=== PATIENT | female | born 1965 ===

== ENCOUNTER 2024-09-20 11:41 | Emergency (ER) | payer OTHER, SELFPAY ==
--- NOTE | ~2024-09-20 | CT_ITS ---
EXAMINATION: CT ABDOMEN PELVIS WITHOUT IV CONTRAST HISTORY: right flank pain COMPARISON: There are no prior studies available for comparison. TECHNIQUE: CT scan of the abdomen and pelvis was performed without contrast using standard departmental protocol. Coronal and sagittal reformatted images were generated and reviewed. Oral contrast material was not administered per department protocol. This CT exam was performed with one or more of the following dose reduction techniques: automated exposure control, adjustment of the mA and/or kV according to patient size, use of iterative reconstruction technique. DLP: 969 mGy-cm FINDINGS: LOWER CHEST: There is minimal patchy airspace opacity at the right lung base, which could represent early pneumonia. The visualized left lung base is clear. There is a trace right pleural effusion. CARDIOVASCULATURE: The heart is normal in size. There is no pericardial effusion. LIVER: The liver is normal in size and contour. The liver has an unremarkable unenhanced appearance. GALLBLADDER / BILE DUCTS: The gallbladder is unremarkable. There is no intra or extrahepatic biliary ductal dilatation. SPLEEN: The spleen is normal in size and has an unremarkable unenhanced appearance. PANCREAS: The pancreas has an unremarkable unenhanced appearance. ADRENAL GLANDS: Unremarkable. KIDNEYS/RETROPERITONEUM: There is a hypertrophied column of Arun on the right. No renal or ureteral calculi are identified. There is no hydronephrosis or hydroureter. LYMPH NODES: No retroperitoneal lymphadenopathy is identified in the abdomen or pelvis. VASCULATURE: The abdominal aorta is normal in caliber. MESENTERY/PERITONEUM: No free fluid. No masses. There is no free intraperitoneal gas. STOMACH: The patient is status post post laparoscopic gastric band procedure. SMALL BOWEL: The small bowel is normal in caliber. COLON: The colon is unremarkable. APPENDIX: Normal. URINARY BLADDER/PELVIC ORGANS: The urinary bladder is unremarkable. The uterus and ovaries have an unremarkable unenhanced appearance. There is a curvilinear metallic density adjacent to the uterine fundus. BONES / SOFT TISSUES: There is grade I spondylolisthesis of L4 on L5. A small sclerotic focus in the left ilium likely represents a bone island. CT/CT abdomen pelvis wo IV con IMPRESSION: 1. No evidence of nephrolithiasis or ureteral obstruction. 2. Possible early right lower lobe pneumonia with an associated trace pleural effusion. 3. Curvilinear metallic foreign body in the pelvis adjacent to the uterine fundus. Clinical correlation is recommended. Electronically signed by: Jose Soria MD 09/20/2024 02:05 PM EDT RP
--- NOTE | ~2024-09-20 | CT_ITS ---
CLINICAL HISTORY: Shortness of breath right-sided pain CT angiography chest with contrast. MIP postprocessing. Comparison: CT/SR - CT ABDOMEN PELVIS WO IV CON - 09/20/24 13:38 EDT Findings: There is appropriate contrast opacification of the main, lobar, and segmental pulmonary arteries. No filling defects identified to suggest pulmonary embolism. Thoracic aorta is nonaneurysmal. Overall heart size within normal limits. Multifocal areas of ground-glass density are seen within the upper lobes. More focal consolidation seen within the dependent portion of the right lower lobe with small right pleural effusion seen on the patient's earlier CT of the abdomen. No discrete pulmonary mass lesion identified. No pneumothorax. Small hiatal hernia. Lap band device is in place along the gastric fundus. No free fluid or free air within the upper abdomen. Low-attenuation throughout the liver is indicative of fatty infiltration. No acute bony lesions. IMPRESSION: 1. No pulmonary emboli. 2. Hazy ground-glass densities may be seen with edema or pneumonitis. 3. Unchanged consolidation within the dependent portion of the right lower lobe with small right pleural effusion. This document has been electronically signed by: Jackson Boggs MD on 09/20/2024 20:57:16
[2024-09-20 11:58] VITALS: BP 132/81; PULSE 87; RESP 18; TEMP 36.6; O2SAT 98; BMI 43.2
[2024-09-20 12:26] LABS: MANUAL DIFF FLAG NO
[2024-09-20 12:28] LABS: Appearance Urine Clear; Basophils Absolute Auto 0.1 X10*3/uL (0.0-0.2); Basophils Percent Auto 0.8 % (0-2); Color Urine Yellow; Eosinophils Absolute Auto 0.1 X10*3/uL (0.0-0.4); Eosinophils Percent Auto 1.5 % (0-4); Glucose Urine UA Negative (Negative); Hematocrit 45.4 % (37.0-47.0); Imm Gran Abs Auto 0.03 X10*3/uL (0.00-0.03); Imm Gran Pct Auto 0.4 % (0.0-0.4); Leukocyte Esterase Urine Negative (Negative); Lymphocytes Absolute Auto 1.7 X10*3/uL (1.2-4.9); Lymphocytes Percent Auto 21.9 % (20-40); Mean Corpuscular Hemoglobin 28.4 pg (27.0-33.0); Mean Corpuscular Volume 85.8 fL (80.0-98.0); Mean Platelet Volume 8.6 fL (9.4-12.3); Monocytes Absolute Auto 0.6 X10*3/uL (0.1-1.2); Monocytes Percent Auto 7.9 % (2-11); Neutrophils Absolute Auto 5.4 x10*3/uL (2.0-8.3); Neutrophils Percent Auto 67.5 % (45-73); Nitrite Urine Negative (Negative); Platelet Count 306 X10*3/uL (160-400); Red Blood Count 5.29 X10*6/uL (4.20-5.50); Red Cell Distribution Width 12.9 % (11.0-16.0); Specific Gravity - Urine 1.015 (1.005-1.025); UMIC TRIGGER UACC YES; Urine Blood Trace (Negative); Urine Ketones Negative (Negative); Urine Protein Negative (Neg-Trace)
[2024-09-20 12:31] LABS: Bacteria Urine None Seen (None Seen); Hyaline Casts Urine 0-2 /LPF (0-2); RBC Urine 0-2 /HPF (0-2); Squamous Epithelial Cell Urine 0-2 /HPF (0-2); WBC Urine 0-5 /HPF (0-5)
[2024-09-20 12:41] LABS: Alanine Aminotransferase 12 U/L (0-31); Albumin Level 4.4 g/dL (3.5-5.0); Alkaline Phosphatase 97 U/L (39-117); Anion Gap 16 (12-20); Aspartate Amino Transferase 17 U/L (5-31); Bilirubin Direct 0.2 mg/dL (0.0-0.5); Bilirubin Total 0.6 mg/dL (0.0-1.0); Blood Urea Nitrogen 16 mg/dL (9-16); Calcium 9.4 mg/dL (8.4-10.2); Carbon Dioxide 28 mmol/L (22-29); Chloride 102 mmol/L (96-108); Creatinine Clr Calc Pharmacy 89.3; Estimated Glomerular Filt Rate > 60; Glucose Random 117 mg/dL (60-115); Lipase 39 U/L (8-78); Potassium 3.4 mmol/L (3.3-5.1); Sodium 143 mmol/L (135-145); Total Protein 7.4 g/dL (6.5-8.0)
[2024-09-20 16:47] VITALS: BP 142/88; PULSE 83; RESP 18; TEMP 36.6; O2SAT 97
[2024-09-20 17:24] VITALS: BP 152/83; PULSE 87; RESP 18; TEMP 36.4; O2SAT 97
--- NOTE | 2024-09-20 17:52 | ED.FEMALEGU ---
HPI - Female Genitourinary General Chief complaint: Urogenital-Female Stated complaint: Kidney stone? Back Pain Time Seen by Provider: 09/20/24 17:47 Source: patient Mode of arrival: ambulatory Limitations: no limitations History of Present Illness ED Provider: HPI Narrative: Patient no significant past medical history noticed pain in the right lower lung and upper abdominal for last 4 days denies any cough started having increased shortness of breath since yesterday no fever no chills patient does have strong family history of lymphoma in brother and sister patient has never diagnose with early lung condition no history of kidney stone or gallstones no nausea no vomiting pain increases on taking a deep breaths Related Data Previous Rx's ?Medication ?Instructions ?Recorded amoxicillin 875 mg-potassium 1 tab PO BID #20 tabs 09/20/24 clavulanate 125 mg tablet doxycycline hyclate 100 mg tablet 100 mg PO BID #20 tabs 09/20/24 ibuprofen 600 mg tablet 600 mg PO Q6H PRN fever or pain 09/20/24 #30 tabs Allergies Allergy/AdvReac Type Severity Reaction Status Date / Time No Known Allergies Allergy Verified 09/20/24 12:00 Review of Systems Review of Systems: Yes all other systems are reviewed and are negative [facility] Social History Social History Advance Directives: No Advance Directives Information Provided: No Do you have a plan to hurt others: No Plan Physical Exam Vital Signs: Vital Signs: Last Vital Signs Temp 98.6 F 09/20/24 23:10 Pulse 88 09/20/24 23:10 Resp 16 09/20/24 23:10 BP 138/68 09/20/24 23:10 Pulse Ox 95 09/20/24 23:10 O2 Del Method Room Air 09/20/24 23:10 BMI result Body Mass Index 43.2 Appearance: Alert. Oriented X3. mod+ discomfort Eyes: PERRLA, No Nystagmus ENT: Pharynx normal. Oral Mucosa moist Neck: Normal inspection. Neck supple. CVS: Normal heart rate and rhythm. Pulses normal. Respiratory: No respiratory distress. Equal air entry bilateral, no wheezing/rales/rhonchi Abdomen: Soft and nontender. Bowel sounds are present, no mass palpable, no CVA tenderness Skin: Skin warm and dry. Normal skin color. Normal skin turgor. Extremities: No lower extremity edema. No calf tenderness Neuro: Oriented X 3. No motor deficit. No sensory deficit.No cerebellar signs , cranial nerves II-XII intact Medications Administered Discontinued Medications Generic Name Dose Route Start Last Admin Trade Name Jovanniq PRN Reason Stop Dose Admin Amoxicillin/Clavulanate Potassium 875 mg 09/20/24 21:32 09/20/24 21:43 Amoxicillin/Potassium Clav 875 Mg Tablet PO 09/20/24 21:33 875 mg ONCE ONE Administration Doxycycline Monohydrate 100 mg 09/20/24 21:32 09/20/24 21:43 Doxycycline Monohydrate 100 Mg Capsule PO 09/20/24 21:33 100 mg ONCE ONE Administration Iohexol 85 ml 09/20/24 20:08 09/20/24 20:09 Iohexol 350 Mg/Ml 100 Ml Infus..Btl IV 09/20/24 20:09 85 ml ONCE ONE Administration Morphine Sulfate 4 mg 09/20/24 18:31 09/20/24 18:40 Morphine Sulfate 4 Mg/Ml Cartridge IVPUSH 09/20/24 18:32 4 mg ONCE ONE Administration Protocol Ondansetron HCl 4 mg 09/20/24 18:31 09/20/24 18:40 Ondansetron Hcl 4 Mg/2 Ml Vial IVPUSH 09/20/24 18:32 4 mg ONCE ONE Administration Medical Decision Making Medical Decision Making [facility] Narrative: Patient with right lower lung pain CT scan of the abdomen showed pleural effusion will do CTA chest to rule out mass in the lung/pulmonary infarction patient has a strong family history of lymphoma Patient's CT scan showed right lower lobe infiltration patient does not have any cough etiology not clear likely patient has aspiration pneumonia with pleurisy as the cause of the pain will prescribe her Augmentin and check for the COVID flu Lab Data [facility] Lab Attestation statement: I reviewed the patient's lab results. 09/20/24 12:14 09/20/24 12:14 Labs: Lab Results 09/20/24 09/20/24 Range/Units 12:14 21:47 WBC 8.0 (4.8-10.8) X10*3/uL RBC 5.29 (4.20-5.50) X10*6/uL Hgb 15.0 (12.0-16.0) g/dl Hct 45.4 (37.0-47.0) % MCV 85.8 (80.0-98.0) fL MCH 28.4 (27.0-33.0) pg MCHC 33.0 (31.0-35.0) g/dl RDW 12.9 (11.0-16.0) % Plt Count 306 (160-400) X10*3/uL MPV 8.6 L (9.4-12.3) fL Immature Gran % (Auto) 0.4 (0.0-0.4) % Neut % (Auto) 67.5 (45-73) % Lymph % (Auto) 21.9 (20-40) % [place] % (Auto) 7.9 (2-11) % Eos % (Auto) 1.5 (0-4) % Baso % (Auto) 0.8 (0-2) % Lymph # (Auto) 1.7 (1.2-4.9) X10*3/uL [place] # (Auto) 0.6 (0.1-1.2) X10*3/uL Eos # (Auto) 0.1 (0.0-0.4) X10*3/uL Baso # (Auto) 0.1 (0.0-0.2) X10*3/uL Abs Immat Gran (auto) 0.03 (0.00-0.03) X10*3/uL Absolute Neuts (auto) 5.4 (2.0-8.3) x10*3/uL Absolute Nucleated RBC 0.000 (0.0-0.012) X10*3/uL Nucleated RBC % (auto) 0.0 (0.0-0.2) /100WBC Sodium 143 (135-145) mmol/L Potassium 3.4 (3.3-5.1) mmol/L Chloride 102 (96-108) mmol/L Carbon Dioxide 28 (22-29) mmol/L Anion Gap 16 (12-20) BUN 16 (9-16) mg/dL Creatinine 0.79 (0.5-1.4) mg/dL Estim Creat Clear Calc 89.3 Estimated GFR > 60 Random Glucose 117 H (60-115) mg/dL Calcium 9.4 (8.4-10.2) mg/dL Total Bilirubin 0.6 (0.0-1.0) mg/dL Direct Bilirubin 0.2 (0.0-0.5) mg/dL AST 17 (5-31) U/L ALT 12 (0-31) U/L Alkaline Phosphatase 97 (39-117) U/L Total Protein 7.4 (6.5-8.0) g/dL Albumin 4.4 (3.5-5.0) g/dL Lipase 39 (8-78) U/L Urine Color Yellow Urine Appearance Clear Urine pH 5.0 (5.0-9.0) Ur Specific [place] 1.015 (1.005-1.025) Urine Protein Negative (Neg-Trace) mg/dL Urine Glucose (UA) Negative (Negative) mg/dL Urine Ketones Negative (Negative) mg/dL Urine Blood Trace H (Negative) Urine Nitrite Negative (Negative) Ur Leukocyte Esterase Negative (Negative) Urine RBC 0-2 (0-2) /HPF Urine WBC 0-5 (0-5) /HPF Ur Squamous Epith Cells 0-2 (0-2) /HPF Urine Bacteria None Seen (None Seen) Hyaline Casts 0-2 (0-2) /LPF Influenza Type A (PCR) NEGATIVE (Negative) Influenza Type B (PCR) NEGATIVE (Negative) RSV RNA Qual (PCR) NEGATIVE (Negative) SARS-CoV-2 RNA (RT-PCR) NEGATIVE (Negative) Independent Interpretation I performed an independent interpretation of an: CT Scan Radiology Impression Discussion of test interpretation with radiology: I have reviewed the radiologist's reading. Discharge Plan Discharge Clinical Impression: Pneumonia, Pleurisy Patient Disposition: Home, Self-Care Instructions: Pleurisy (DC), Community Acquired Pneumonia (ED) Additional Instructions: Your small pneumonia with likely pleural inflammation as the cause of pain Take antibiotic as prescribed Ibuprofen for pain Follow up with your PCP Prescriptions: New ibuprofen 600 mg tablet 600 mg PO Q6H PRN (Reason: fever or pain) Qty: 30 0RF doxycycline hyclate 100 mg tablet 100 mg PO BID Qty: 20 0RF amoxicillin-pot clavulanate 875-125 mg tablet 1 tab PO BID Qty: 20 0RF Interventions: ED Discharge Assessment Last Done: 09/20/24 23:10 Discharge Date/Time: 09/20/24 23:11 Print Language: Unable To Collect
--- OUTSIDE RECORDS SUMMARY | 2024-09-20 17:57 | XMS_ITS ---
Author Name [facility] Organization Unknown History of Medication Use Medication Directions Dispensed Refills Start Date End Date Status gabapentin 600 mg tablet TAKE 1 TABLET BY MOUTH DAILY 04/28/19 25 active lidocaine-prilocaine 2.5 %-2.5 % topical kit APPLY TO THE RIGHT FOOT EXTERNALLY THREE TIMES A DAY NEEDED 30 DAYS 05/29/19 24 025 completed famotidine 20 mg tablet TAKE 1 TABLET BY MOUTH TWICE A DAY 04/27/19 24 active predniSONE (DELTASONE) 10 MG tablet 40 MG PO every day X 3 DAYS, 30 MG PO every day X 3 DAYS, 20 MG PO every day X 3 DAYS, 10 MG PO every day X 3 DAYS 03/17/20 23 active spacer for MDI (Aerochamber/BreatheRit e/Ellipse) Device Use as instructed 03/17/20 23 active acyclovir 400 mg tablet 1 04/18/19 23 023 completed ciprofloxacin 500 mg tablet Take 1 tablet (500 mg total) by mouth 2 (two) times a day for 3 days. 01/30/20 23 023 completed gabapentin 300 mg capsule Refills 0, Maintenance, 09/17/22 9:39:00 EDT, Partial fill upon patient request if the prescription is for a schedule II opioid drug. 09/18/19 23 024 completed gabapentin (NEURONTIN) 300 MG capsule Refills 0, Maintenance, 09/17/22 9:39:00 EDT, Partial fill upon patient request if the prescription is for a schedule II opioid drug. 09/18/19 23 active hydroCHLOROthiazide (HYDRODIURIL) tablet 12.5 mg TAKE 1 TABLET BY MOUTH EVERY DAY 09/03/19 23 active colchicine 0.6 mg tablet 1.2 mg PO x 1, then 0.6 mg PO 1 hr later x 1. Skip atorvastatin doses while taking this medication. 08/08/19 023 completed epinephrine 0.3 mg/0.3 mL injection, auto-injector INJECT THE CONTENTS OF 1 SYRINGE INTRAMUSCULARLY AT 1ST SYMPTOMS 06/27/19 active benzonatate 100 mg capsule Take 1 capsule (100 mg total) by mouth 3 (three) times a day as needed for cough. 04/05/20 023 completed atorvastatin 10 mg tablet Take 1 tablet (10 mg total) by mouth every evening. 04/02/20 023 completed albuterol sulfate HFA 90 mcg/actuation aerosol inhaler INHALE 1 TO 2 PUFFS EVERY 4 TO 6 HOURS NEEDED. Strength: 108 (90 Base) MCG/ACT 02/23/20 active famotidine (PEPCID) 20 MG tablet Take 1 tablet (20 mg total) by mouth 2 (two) times a day. 01/26/20 active valacyclovir 1 gram tablet Take 1 tablet (1,000 mg total) by mouth 2 (two) times a day. for 5 days 07/28/19 023 completed diclofenac 1 % topical gel APPLY 1 GRAM TOPICALLY THREE TIMES A DAY NEEDED FOR UP TO 30 DAYS 06/23/19 active estradiol 10 mcg vaginal tablet Yuvafem 10 mcg vaginal tabletINSERT 1 TABLET EVERY DAY BY VAGINAL ROUTE FOR 84 DAYS. 06/15/19 22 active nystatin 100,000 unit/gram topical cream APPLY TO AFFECTED AREA TWICE A DAY 10/21/19 active nystatin (MYCOSTATIN) cream APPLY TO AFFECTED AREA TWICE A DAY 10/21/19 20 active lidocaine 5 % topical patch Place 1 patch onto the skin daily. Remove & Discard patch within 12 hours or as directed by 09/14/19 023 completed acyclovir (ZOVIRAX) 800 MG tablet Take 1 tablet (800 mg total) by mouth 4 (four) times a day. 12/02/19 19 active lidocaine (LIDODERM) 5 % patch Place on the skin every 24 hours. 09/30/19 19 active olopatadine 0.1 % eye drops instill 1 drop into both eyes twice a day 03/08/20 16 active olopatadine (PATANOL) 0.1 % ophthalmic solution instill 1 drop into both eyes twice a day 03/08/20 16 active cephalexin 500 mg capsule 1 capsule 023 completed gabapentin 600 mg tablet active cyclobenzaprine 10 mg tablet TAKE 1 TABLET (10 MG TOTAL) BY MOUTH EVERY NIGHT AT BEDTIME NEEDED active hydrochlorothiazide 12.5 mg tablet TAKE 1 TABLET BY MOUTH EVERY DAY active Cholecalciferol (VITAMIN D) 1000 UNITS tablet Take 1,000 Units by mouth daily. active Claritin 10 mg tablet Take 1 tablet every day by oral route. Take 1 tablet every day by oral route. completed cyclobenzaprine (FLEXERIL) 10 MG tablet Take 10 mg by mouth 3 times daily (every 8 hours) as needed for muscle spasms. active diclofenac 1 % topical gel APPLY 1 GRAM TOPICALLY THREE TIMES A DAY NEEDED FOR UP TO 30 DAYS APPLY 1 GRAM TOPICALLY THREE TIMES A DAY NEEDED FOR UP TO 30 DAYS completed lidocaine 5 % topical patch lidocaine 5 % topical patch completed Loratadine (CLARITIN PO) Take by mouth. active nystatin 100,000 unit/gram topical cream APPLY TO THE AFFECTED AREA(S) BY TOPICAL ROUTE 2 TIMES PER DAY APPLY TO THE AFFECTED AREA(S) BY TOPICAL ROUTE 2 TIMES PER DAY completed Yuvafem 10 mcg vaginal tablet INSERT 1 TABLET EVERY DAY BY VAGINAL ROUTE FOR 84 DAYS. INSERT 1 TABLET EVERY DAY BY VAGINAL ROUTE FOR 84 DAYS. completed Problems Problem Status Onset Date Problem Type Date of Resolution Source Ankylosis of sacroiliac joint active 2022-12-14 2 ProblemAct [facility] Genuine stress incontinence active 2018-09-12 4 ProblemAct [facility] Constipation active 2018-09-12 4 ProblemAct [facility] Periodic limb movement disorder active 4 ProblemAct [facility] Loss of sense of smell active 2018-09-12 4 ProblemAct [facility] Irregular bowel habits active 2018-09-12 4 ProblemAct [facility] Cervical intraepithelial neoplasia grade 1 active 2019-04-14 9 ProblemAct [facility] Body mass index 30+ - obesity active 2021-07-14 2 ProblemAct [facility] History of bariatric surgical procedure active 2015-10-14 1 ProblemAct [facility] Iron deficiency anemia active 4 ProblemAct [facility] Nasal sinus pressure sensation active 2024-05-15 2 ProblemAct [facility] Spasm of back muscles active 2024-05-15 2 ProblemAct [facility] Asthma active 4 ProblemAct [facility] Spinal stenosis of lumbar region active 2018-08-13 1 ProblemAct [facility] Mass of left adrenal gland active 2024-04-14 9 ProblemAct [facility] Herpes zoster without complication active 2018-11-13 0 ProblemAct [facility] Essential hypertension active 4 ProblemAct [facility] Familial multiple lipoprotein-type hyperlipidemia active 4 ProblemAct [facility] Human papillomavirus deoxyribonucleic acid detected, high risk on cervical specimen active 3 ProblemAct [facility] Verruca plantaris active 2022-03-15 3 ProblemAct [facility] Thyroid nodule active 2023-08-13 9 ProblemAct [facility] Severe obesity active 2020-11-12 1 ProblemAct [facility] Small fiber neuropathy active 2022-12-13 2 ProblemAct [facility] Gastroesophageal reflux disease active 4 ProblemAct [facility] Osteopenia active 4 ProblemAct [facility] Hyperlipidemia active 4 ProblemAct [facility] External hemorrhoids active 2018-09-12 4 ProblemAct [facility] Family history of polyp of colon active 2018-09-12 4 ProblemAct [facility] Genital herpes simplex active 2018-09-12 4 ProblemAct [facility] Lumbosacral radiculopathy active 2018-08-13 1 ProblemAct [facility] Stenosis of lumbar vertebral foramen active 2018-08-13 1 ProblemAct [facility] Osteoarthritis of left knee joint active 2018-08-13 1 ProblemAct [facility] Adrenal mass active 2018-08-13 1 ProblemAct [facility] History of surgery active 2018-11-13 0 ProblemAct [facility] Atrophic vaginitis active 3 ProblemAct [facility] Moderate persistent asthma without complication active EncounterDiagnosisAct [facility] Asthma active 4 ProblemAct [facility] Primary osteoarthritis of left knee active 2018-08-13 1 ProblemAct [facility] Overweight active 4 ProblemAct [facility] Esophageal reflux active 4 ProblemAct [facility] Genital herpes simplex active 2018-09-12 4 ProblemAct [facility] Adrenal mass active 2019-05-2 1 ProblemAct [facility] Vitamin D deficiency active 4 ProblemAct [facility] Loss of sense of smell active 2018-09-12 4 ProblemAct [facility] Other and unspecified hyperlipidemia active 4 ProblemAct [facility] History of resection of meningioma active 2018-11-13 0 ProblemAct [facility] Familial multiple lipoprotein-type hyperlipidemia active 4 ProblemAct [facility] Positive test for human papillomavirus (HPV) active 3 ProblemAct [facility] Iron deficiency anemia active 4 ProblemAct [facility] Periodic limb movement disorder active 4 ProblemAct [facility] Herpes zoster without complication active 2018-11-13 0 ProblemAct [facility] Colon cancer screening active 2015-10-13 8 ProblemAct [facility] Bariatric surgery status active 2015-10 1 ProblemAct [facility] Lumbosacral radiculopathy active 2018-08-13 1 ProblemAct [facility] External hemorrhoid active 2018-09-12 4 ProblemAct [facility] Spinal stenosis of lumbar region active 2018-08-13 1 ProblemAct [facility] Problems influencing health status active 2014-02-12 2 ProblemAct [facility] Stress incontinence of urine active 2018-09-12 4 ProblemAct [facility] Other constipation active 2018-09-12 4 ProblemAct [facility] UTI symptoms active EncounterDiagnosisAct [facility] Infection by Trichomonas active 2011-04 1 ProblemAct [facility] Atrophic vaginitis active 3 ProblemAct [facility] Cervical intraepithelial neoplasia grade 1 active 2019-04-14 9 ProblemAct [facility] Hypertensive disorder active 3 ProblemAct [facility] Irregular bowel habits active 2018-09-12 4 ProblemAct [facility] Loss of sense of smell active ProblemAct [facility] Asthma active ProblemAct [facility] Atrophic vaginitis active 3 ProblemAct [facility] Class 2 severe obesity due to excess calories with serious comorbidity and body mass index (BMI) of 38.0 to 38.9 in adult active 2020-11-12 1 ProblemAct [facility] Plantar wart active 2022-03-15 3 ProblemAct [facility] Hypercholesterolemia active 4 ProblemAct [facility] HPV - Human papillomavirus test positive active 3 ProblemAct [facility] Genital herpes simplex active ProblemAct [facility] Family history of colonic polyps active 2018-09-12 4 ProblemAct [facility] Trichomoniasis active 1 ProblemAct [facility] Cervical high risk HPV (human papillomavirus) test positive active 3 ProblemAct [facility] Genuine stress incontinence active ProblemAct [facility] Osteopenia active 4 ProblemAct [facility] Cervical intraepithelial neoplasia grade 1 active 2019-04-14 9 ProblemAct [facility] Osteopenia active 4 ProblemAct [facility] Immunizations Vaccine Date Source Lot Number Status Adacel (Tdap Adolesn/Adult)( PF)2 Lf-(2.5-5-3-5)-5 Lf/0.5 mL IM syringe 04/28/2024 [facility] [id number] completed SARS-COV-2 (COVID-19) vaccin e, mRNA, spike protein, LNP, preservative free, 100 mcg/0.5mL dose 05/17/2020 [facility] completed SARS-COV-2 (COVID-19) vaccin e, mRNA, spike protein, LNP, preservative free, 100 mcg/0.5mL dose 04[facility]19/[facility] influenza, seasonal, injectable 01/12/2014 [facility] influenza, seasonal, injectable 01/26/2013 [facility] [id number] completed influenza, injectable, quadr ivalent, contains preservative 03/11/2012 [facility] [id number] completed influenza, seasonal, injectable 03/11/2012 [facility] [id number] completed tetanus toxoid, unspecified formulation 05/03/2011 [facility] CT completed Tetanus 05/03/2011 [facility] completed hepatitis B vaccine, adult dosage 07/17/2010 [facility] [id number] completed hepatitis B vaccine, adult dosage 02/16/2010 [facility] [id number] completed hepatitis B vaccine, adult dosage 01/15/2010 [facility] [address] [id number] completed Encounters Encounter Type Encounter Reason Primary Diagnosis Location Date Ambulatory [facility] 08/03/2024 Ambulatory [facility] 05/26/2024 Ambulatory [facility] 05/26/2024 Ambulatory [facility] 04/28/2024 Ambulatory [facility] 04/28/2024 Ambulatory [facility] 04/28/2024 Ambulatory [facility] 03/03/2024 Ambulatory Moderate persistent asthma, uncomplicated Moderate persistent asthma, uncomplicated [facility] 03/17/2023 Ambulatory Acute upper respiratory infection, unspecified Acute upper respiratory infection, unspecified [facility] 02/21/2023 Ambulatory [facility] 11/30/19 Ambulatory Cervical high risk HPV DNA test positive [facility] 11/21/2022 Ambulatory Cervical high risk HPV DNA test positive [facility] 11/21/2022 Ambulatory [facility] 09/26/2022 Ambulatory [facility] 08/15/2022 Ambulatory Mild intermitten t asthma with (acute) exacerbation [facility] 04/11/2022 Ambulatory Sialoadenitis, unspecified [facility] 03/31/2022 Ambulatory Obesity, unspecified [facility] 01/25/2022 Ambulatory Obesity, unspecified [facility] 11/02/2021 Ambulatory Obesity, unspecified [facility] 08/03/2021 Ambulatory [facility] 07/18/2021 Ambulatory Obesity, unspecified [facility] 06/18/2021 Ambulatory [facility] 06/14/2021 Ambulatory Contact with and (suspected) exposure to covid-19 [facility] [employer] [facility] 02/22/2021 Ambulatory Contact with and (suspected) exposure to covid-19 [facility] 02/16/2021 Care Team Organization Name Specialty Phone Email Start Date End [facility] 05/06/2024 [facility] 08/06/2023 [facility] 08/06/2023 [facility] 02/13/2023 [facility] 01/03/2023 024 [facility] 12/05/2022 [facility] 11/1211/29/2022 [facility] 01/25/2022 07/01/19 25 [facility] 07/19/2021 [facility] 06/14/202107/18 [facility] 02/22/2021 01/26/20 [facility] 02/16/2021 04/11/2022
[2024-09-20] MEDS: ondansetron HCL 4 MG/2 ML VIAL IVPUSH (18:40)
[2024-09-20] MEDS: Morphine Sulfate 4 MG/ML CARTRIDGE IVPUSH (18:40)
[2024-09-20] MEDS: iohexoL 350 MG/ML 100 ML INFUS..BTL 85 ML IV (20:09)
[2024-09-20 20:18] VITALS: BP 151/80; PULSE 85; RESP 16; TEMP 36.6; O2SAT 95
[2024-09-20] MEDS: Amoxicillin/Potassium Clav 875 MG TABLET PO (21:43)
[2024-09-20] MEDS: Doxycycline Monohydrate 100 MG CAPSULE PO (21:43)
[2024-09-20 22:29] LABS: Influenza A PCR NEGATIVE (Negative); Influenza B PCR NEGATIVE (Negative); Resp Syncy Virus RNA Qual PCR NEGATIVE (Negative); SARS COV2 PCR INHOUSE NEGATIVE (Negative)
[2024-09-20 22:55] VITALS: BP 138/68; PULSE 88; RESP 16; TEMP 37; O2SAT 95
[2024-09-20 23:10] VITALS: BP 138/68; PULSE 88; RESP 16; TEMP 37; O2SAT 95
== END 2024-09-20 23:11 | disposition home or self-care (01) ==
PROVIDERS: Emergency Provider Internal Medicine
DX: J18.9 Pneumonia, unspecified organism (principal); R06.02 Shortness of breath; R09.1 Pleurisy; M54.50 Low back pain, unspecified; R10.2 Pelvic and perineal pain; Z03.818 Encounter for observation for suspected exposure to other biological agents ruled out; Z79.899 Other long term (current) drug therapy
CPT/HCPCS: 0241U; 36415; 71275; 74176; 80048; 80076; 81001; 83690; 85025; 96374; 96375; 99284; J2270; J2405; Q9967

== ENCOUNTER → 2024-09-20 12:43 | Outpatient (BNV) | payer OTHER, SELFPAY | PROVIDERS: Visit Provider Radiology Diagnostic Radiology | DX: J90 Pleural effusion, not elsewhere classified (principal); M43.16 Spondylolisthesis, lumbar region | CPT/HCPCS: 71275; 74176 ==